=== PATIENT | female | born 2005 | race Caucasian/White ===

== ENCOUNTER 2025-05-14 14:53 | Outpatient (CLI) | payer OTHER, SELFPAY | END 2025-05-14 14:54 | disposition home or self-care (01) | PROVIDERS: PCP Nurse Practitioner Family; Visit Provider Nurse Practitioner Family | DX: E61.1 Iron deficiency (principal); E03.9 Hypothyroidism, unspecified; Z79.899 Other long term (current) drug therapy | CPT/HCPCS: 82607; 82728; 83540; 83550; 84436; 84439; 84443; 84481; 85025 ==

== ENCOUNTER 2025-07-23 14:01 | Outpatient (CLI) | payer OTHER, SELFPAY | END 2025-07-23 14:02 | disposition home or self-care (01) | LOC: KYNREF 14:02 | PROVIDERS: PCP Nurse Practitioner Family; Visit Provider Nurse Practitioner Family | DX: E03.9 Hypothyroidism, unspecified (principal) | CPT/HCPCS: 84443; 84703 ==

== ENCOUNTER 2025-08-14 13:08 | Outpatient (CLI) | payer OTHER, SELFPAY | END 2025-08-14 13:09 | disposition home or self-care (01) | PROVIDERS: PCP Nurse Practitioner Family; Visit Provider Nurse Practitioner Family | DX: R20.2 Paresthesia of skin (principal) | CPT/HCPCS: 82306; 82607; 82728; 82947; 83540; 85025 ==

== ENCOUNTER 2025-09-14 15:02 | Outpatient (CLI) | payer OTHER, SELFPAY ==
--- NOTE | 2025-09-14 15:30 | CRLHL7_ITS ---
For Patients: As a result of the Century Cures Act, medical imaging exams and procedure reports are released immediately into your electronic medical record. You may view this report before your referring provider. If you have questions, please contact your health care provider. INDICATION: Paresthesias of the skin TECHNIQUE: Noncontrast sagittal and axial T1, T2, and sagittal STIR sequences are provided. No comparisons. FINDINGS: The overall stature, alignment and intrinsic marrow signal of the lumbar spine is within normal limits. Conus is normal. No suspicious disc bulges or protrusions. No suspicious central canal or foraminal narrowing. IMPRESSION: Unremarkable MRI of the lumbar spine. Dictated by Chi Perez MD @ 09/15/2025 10:34:39 AM (Electronically Signed)
== END 2025-09-14 15:03 | disposition home or self-care (01) ==
LOC: MRI 15:03
PROVIDERS: PCP Nurse Practitioner Family; Visit Provider Nurse Practitioner Family
DX: R20.2 Paresthesia of skin (principal)
CPT/HCPCS: 72148